=== PATIENT | female | born 1950 | race Caucasian/White ===

== ENCOUNTER → 2017-05-07 | Outpatient (CLI) | payer OTHER ==
[~2017-05-07] MED LIST: DIAZ2TAB3 PO; DIAZ5TAB PO; DOCU-30 PO; LOSA25TA5 PO; METH4TAB2 PO; OXYC-229 PO; OXYC1TAB8 PO; REGADENOSON 0.4 MG/5 ML SYRINGE ONE; TIZA4TAB9 PO
== END | disposition home or self-care (01) ==
LOC: CFH 08:21
PROVIDERS: ATTEND Family Medicine
DX: R94.31 Abnormal electrocardiogram [ECG] [EKG] (principal); R07.9 Chest pain, unspecified; R42 Dizziness and giddiness; I10 Essential (primary) hypertension
CPT/HCPCS: 78452; 93017; A9502; J2785

== ENCOUNTER 2018-05-24 05:30 | Inpatient (IN) | payer MEDICARE ==
[~2018-05-24] VITALS: Ht 167.6 cm; Wt 91.0 kg
[~2018-05-24 05:30] MED LIST changes: +CYCL-259 PO; +DOCU-131 PO; -DOCU-30 PO; -OXYC-229 PO; +OXYC-307 PO; -REGADENOSON 0.4 MG/5 ML SYRINGE ONE; +[UNRECOGNIZED DRUG - REMARK]
[2018-05-24] MEDS ORDERED: LACTATED RINGERS 1,000 ML IV SCH (05:49)
[2018-05-24] MEDS ORDERED: ALEN70TA5 PO (05:51)
[2018-05-24] MEDS ORDERED: IBUP1TAB76 PO (05:51)
[2018-05-24] MEDS ORDERED: LOSA50TA6 PO (05:52)
[2018-05-24] MEDS ORDERED: vitamin e PO (05:54)
[2018-05-24] MEDS ORDERED: VITA150T PO (05:54)
[2018-05-24] MEDS ORDERED: vitamin d3 PO (05:54)
[2018-05-24] MEDS ORDERED: magnesium PO (05:54)
[2018-05-24] MEDS ORDERED: garlic PO (05:56)
[2018-05-24] MEDS ORDERED: [UNRECOGNIZED DRUG - OTHER] PO (05:56)
[2018-05-24 06:33] VITALS: BP 155/96
[2018-05-24] MEDS ORDERED: CEFAZOLIN 1,000 MG ONE ×2 (06:42)
[2018-05-24] MEDS ORDERED: PROPOFOL 10 MG/ML, 20ML ONE (06:42)
[2018-05-24] MEDS ORDERED: FENTANYL PF 250 MCG/5ML ONE (06:42)
[2018-05-24] MEDS ORDERED: MIDAZOLAM 1 MG/ML, 2ML ONE (06:42)
[2018-05-24] MEDS ORDERED: ROCURONIUM 10MG/ML,5ML ONE (06:42)
[2018-05-24] MEDS ORDERED: BUPIVACAINE/PF 0.5% ONE (06:43)
[2018-05-24] MEDS ORDERED: BUPIVACAINE/PF-EPI 0.5% 1:200K ONE (06:54)
[2018-05-24] MEDS ORDERED: ONDANSETRON 2MG/ML, 2ML IV PRN ×2 (07:30→11:30)
[2018-05-24] MEDS ORDERED: OXYcodone 5 MG/5 ML ORAL.SOL UDC PO PRN (07:30)
[2018-05-24] MEDS ORDERED: METOPROLOL 1 MG/ML, 5ML IV PRN (07:30)
[2018-05-24] MEDS ORDERED: HYDROmorphone 1 MG/ML, 1ML IV PRN (07:30)
[2018-05-24] MEDS ORDERED: ACETAMINOPHEN 325 MG TABLET PO PRN (07:30)
[2018-05-24] MEDS ORDERED: hydrALAzine 20 MG/ML, 1ML IV PRN (07:30)
[2018-05-24] MEDS ORDERED: PROMETHAZINE 25 MG/ML, 1ML IV PRN (07:30)
[2018-05-24] MEDS ORDERED: LABETALOL 5MG/ML, 20ML IV PRN (07:30)
[2018-05-24] MEDS ORDERED: EPHEDRINE 50 MG/ML, 1ML IVPush PRN (07:30)
[2018-05-24] MEDS ORDERED: FENTANYL PF 100 MCG/2ML IV PRN (07:30)
[2018-05-24] MEDS ORDERED: ALBUTEROL SULFATE 2.5 MG/3 ML NPPB PRN (07:30)
[2018-05-24] MEDS ORDERED: TRANEXAMIC ACID 100 MG/ML, 10ML ONE (08:40)
[2018-05-24] MEDS ORDERED: DEXAMETHASONE 4 MG/ML, 1ML ONE (09:28)
[2018-05-24] MEDS ORDERED: ONDANSETRON 2MG/ML, 2ML ONE (09:28)
[2018-05-24] MEDS ORDERED: GLYCOPYRROLATE 0.4 MG/2 ML, 2ML ONE (09:28)
[2018-05-24] MEDS ORDERED: NEOSTIGMINE 1 MG/ML, 10ML ONE (09:28)
[2018-05-24] MEDS ORDERED: HYDROcodone/APAP 5/325 TABLET PO PRN (11:30)
[2018-05-24] MEDS ORDERED: PROMETHAZINE 25 MG/ML, 1ML IM PRN (11:30)
[2018-05-24] MEDS ORDERED: SENNA/DOCUSATE TABLET PO PRN (11:30)
[2018-05-24] MEDS ORDERED: DIPHENHYDRAMINE 25 MG CAPSULE PO PRN (11:30)
[2018-05-24] MEDS ORDERED: LOSARTAN 50MG TABLET PO SCH ×2 (11:30→17:00)
[2018-05-24 14:10] VITALS: BP 123/68
[2018-05-24] MEDS: SODIUM CHLORIDE 0.9% 1,000 ML IV SCH (15:44)
[2018-05-24] MEDS: NICOTINE 7 MG/24 HR PATCH.TD24 TD SCH (15:44)
[2018-05-24] MEDS: CEFAZOLIN PMX 2GM/50ML 50 ML IVPB SCH ×2 (15:44→23:45)
[2018-05-24] MEDS: MELOXICAM 15 MG TABLET PO SCH (15:44)
[2018-05-24 19:00] VITALS: BP 133/67
[2018-05-24] MEDS: OXYcodone/APAP 5/325MG TABLET PO PRN (20:22)
[2018-05-24] MEDS: SODIUM CHLORIDE FLUSH 10ML SYR IVF SCH (21:00)
[2018-05-25 00:12] VITALS: BP 116/68
[2018-05-25] MEDS: SODIUM CHLORIDE 0.9% 1,000 ML IV SCH (03:40)
[2018-05-25 05:16] LABS: MEAN CORPUSCULAR HEMOGLOBIN 32.8 pg (27.0-34.8); MEAN CORPUSCULAR HGB CONC 33.4 g/dL (32.4-35.8); MEAN CORPUSCULAR VOLUME 98.1 fL (80-100); MEAN PLATELET VOLUME 10.1 fL (7.4-10.4); PLATELET COUNT 181 x10^3/uL (130-400); RED BLOOD COUNT 3.81 x10^6/uL (3.82-5.3); RED CELL DISTRIBUTION WIDTH 14.8 % (9.6-15.2)
[2018-05-25 05:54] LABS: MD YES
[2018-05-25 05:57] LABS: <PLATELET ESTIMATE> ADEQUATE; <PLT MORPHOLOGY> NORMAL PLT MORPH; <RBC MORPHOLOGY> NORMAL; LYMPH#(MANUAL) 1.75 x10^3/uL (1-3.4); LYMPHS% (MANUAL) 8 % (22-44); MONOS#(MANUAL) 0.44 x10^3/uL (0.3-2.7); MONOS% (MANUAL) 2 % (2-9); SEG#(MANUAL) 19.71 x10^3/uL (1.8-6.8); SEGS% (MANUAL) 90 % (42-75)
[2018-05-25 07:25] VITALS: BP 132/79
[2018-05-25] MEDS: SODIUM CHLORIDE FLUSH 10ML SYR IVF SCH (08:03)
[2018-05-25] MEDS: OXYcodone/APAP 5/325MG TABLET PO PRN ×2 (09:12→13:24)
[2018-05-25] MEDS ORDERED: OXYC-302 PO (12:25)
[2018-05-25] MEDS ORDERED: MELO7.5T31 PO (12:26)
[2018-05-25] MEDS ORDERED: SENN-87 PO (12:26)
[2018-05-25 13:57] VITALS: BP 128/79
[2018-05-25] MEDS: NICOTINE 7 MG/24 HR PATCH.TD24 TD SCH (15:48)
[2018-05-25] MEDS: MELOXICAM 15 MG TABLET PO SCH (15:48)
[2018-05-25 16:30] VITALS: BP 129/69
== END 2018-05-25 16:45 | disposition home or self-care (01) | DRG 483 ==
LOC: ORIP 05:30 → 4NOR 11:16
PROVIDERS: ADMIT Orthopaedic Surgery; ATTEND Internal Medicine
PROC: 0RRK00Z Replacement of Left Shoulder Joint with Reverse Ball and Socket Synthetic Substitute, Open Approach (ICD-10-PCS; principal; 2018-05-24 07:30)
DX: M19.012 Primary osteoarthritis, left shoulder (principal); D72.829 Elevated white blood cell count, unspecified; F17.210 Nicotine dependence, cigarettes, uncomplicated; I10 Essential (primary) hypertension; M81.0 Age-related osteoporosis without current pathological fracture; Z80.3 Family history of malignant neoplasm of breast; E66.9 Obesity, unspecified; Z68.32 Body mass index [BMI] 32.0-32.9, adult
CPT/HCPCS: 36415; 85025; 93005; C1713; C1776; J0690; J1100; J2250; J2405; J2704; J2710; J3010; J3490; J7030; J7120

== ENCOUNTER 2019-09-14 12:14 | Outpatient (CLI) ==
[~2019-09-14 12:14] MED LIST changes: +ALEN70TA6 PO; +IBUP1TAB76 PO; +LOSA25TA25 PO; -LOSA25TA5 PO; +LOSA50TA14 PO; +MELO7.5T31 PO; +OXYC-302 PO; +SENN-88 PO; +VITA150T PO; +[UNRECOGNIZED DRUG - OTHER] PO; +garlic PO; +magnesium PO; +vitamin d3 PO; +vitamin e PO
== END 2019-09-14 23:59 | disposition home or self-care (01) ==
LOC: RAD 12:14
PROVIDERS: ATTEND Family Medicine
DX: R60.9 Edema, unspecified (principal); M79.661 Pain in right lower leg; F17.200 Nicotine dependence, unspecified, uncomplicated

== ENCOUNTER → 2020-04-09 | Outpatient (CLI) | payer MEDICARE ==
[~2020-04-09] MED LIST changes: +SENN-190 PO; -SENN-88 PO
== END | disposition home or self-care (01) ==
LOC: CFH 15:54
PROVIDERS: ATTEND Family Medicine
DX: I08.3 Combined rheumatic disorders of mitral, aortic and tricuspid valves (principal); I11.9 Hypertensive heart disease without heart failure
CPT/HCPCS: 93306

== ENCOUNTER → 2020-07-01 | Outpatient (CLI) | payer MEDICARE ==
[~2020-07-01] MED LIST changes: +REGADENOSON 0.4 MG/5 ML SYRINGE ONE
== END | disposition home or self-care (01) ==
LOC: CFH 12:08
PROVIDERS: ATTEND Internal Medicine Cardiovascular Disease
DX: R93.1 Abnormal findings on diagnostic imaging of heart and coronary circulation (principal); I34.0 Nonrheumatic mitral (valve) insufficiency
CPT/HCPCS: 78452; 93017; A9502; J2785